=== PATIENT | male | born 1970 | race African-American/Black ===

== ENCOUNTER 2025-03-03 00:32 | Inpatient (IN) | payer OTHER ==
[~2025-03-03] VITALS: Ht 172.7 cm; Wt 83.9 kg
[2025-03-03] VITALS (26 sets, daily range): BP systolic 76–191; BP diastolic 54–119; TEMP 98.4–98.5; O2SAT 96–99
[2025-03-03 01:41] LABS: PLATELET COUNT (AUTO) 257 K/uL (152-348); RED BLOOD CELL COUNT(AUTO) 5.16 MIL/uL (4.06-5.63); RED CELL DISTRIBUTION WIDTH 14.6 % (12.1-16.2); WHITE BLOOD COUNT (AUTO) 11.5 K/uL (3.6-10.2)
[2025-03-03 01:51] LABS: ASPARTATE AMINOTRANSFERASE 7.0 U/L (15-37); CREATININE 1.3 mg/dL (0.6-1.3); SODIUM SERUM 142.0 mmol/L (136-145); TOTAL PROTEIN, SERUM 7.6 g/dL (6.4-8.2); UREA NITROGEN, BLOOD 13.0 mg/dL (7-18)
[2025-03-03 02:00] LABS: *BILIRUBIN,URIN NEGATIVE (NEGATIVE); *BLOOD, URINE TRACE (NEGATIVE); *CLARITY,URINE CLEAR (CLEAR); *COLOR,URINE YELLOW (YELLOW); *KETONES,URINE 1+ (NEGATIVE); *PROTEIN,URINE 2+ (NEGATIVE); *UROBILINOGEN,URINE 0.2 E.U./dl (NORMAL); ETHANOL < 3 MG/DL (0-10); LEUKOCYTE ESTERASE ,URINE NEGATIVE (NEGATIVE); NITRITE, URINE NEGATIVE (NEGATIVE); UGLUCOSE 3+ (NEGATIVE)
[2025-03-03 02:06] LABS: SQUAMOUS EPITHELIAL CELL,UR FEW /HPF (NONE SEEN)
[2025-03-03 02:12] LABS: *AMPHETAMINE, URINE POSITIVE (NEGATIVE); *BARBITURATE, URINE NEGATIVE (NEGATIVE); *BENZODIAZEPINE, URINE NEGATIVE (NEGATIVE); *CANNABINOID, URINE NEGATIVE (NEGATIVE); *COCCAINE, URINE NEGATIVE (NEGATIVE); *OPIATE, URINE NEGATIVE (NEGATIVE); *PHENCYCLIDINE SCREEN,URINE NEGATIVE (NEGATIVE); FENTANYL, URINE NEGATIVE (NEGATIVE)
[2025-03-03] MEDS: IV NS 1000 ML 1,000 ML IV ONE (02:16)
[2025-03-03] MEDS ORDERED: LORAZEPAM 2 MG/1 ML VIAL ONE ×2 (04:34→08:01)
[2025-03-03] MEDS: LORAZEPAM 2 MG/1 ML VIAL IV ONE ×2 (04:49→08:05)
[2025-03-03] MEDS ORDERED: METF-440 PO (07:50)
[2025-03-03] MEDS ORDERED: MULT-225 PO (11:41)
[2025-03-03] MEDS ORDERED: IBUP-1955 PO (11:41)
[2025-03-03] MEDS: AMLODIPINE 5 MG TABLET PO SCH (12:18)
[2025-03-03] MEDS: LOSARTAN POTASSIUM 50 MG TABLET PO SCH (12:19)
[2025-03-03] MEDS ORDERED: REMEDY ESSENTIAL ZINC PASTE 113 GM TP PRN (13:30)
[2025-03-03] MEDS ORDERED: ACETAMINOPHEN 325 MG TABLET PO PRN (13:30)
[2025-03-03] MEDS ORDERED: ONDANSETRON 4 MG/2 ML VIAL IV PRN (13:30)
[2025-03-03] MEDS: LORAZEPAM 2 MG/1 ML VIAL IV PRN (13:32)
[2025-03-03] MEDS: NICOTINE 21 MG/24HR PATCH TD SCH (15:20)
[2025-03-03] MEDS: HALOPERIDOL LACTATE 5 MG/1 ML VIAL IM ONE (15:25)
[2025-03-03] MEDS: NICARDIPINE IN NS 200 ML IV PRN (15:33)
[2025-03-04] VITALS (10 sets, daily range): BP systolic 75–118; BP diastolic 46–78; TEMP 97.4–98.4; O2SAT 85–99
[2025-03-04] MEDS: LORAZEPAM 2 MG/1 ML VIAL IV PRN (04:34)
[2025-03-04] MEDS: PANTOPRAZOLE SODIUM 40 MG TABLET.DR PO SCH (08:35)
[2025-03-04] MEDS: QUETIAPINE FUMARATE 25 MG TABLET PO SCH (09:54)
[2025-03-04] MEDS ORDERED: NICOTINE 21 MG/24HR PATCH TD SCH (14:00)
== END 2025-03-04 11:45 | disposition left against medical advice (07) | DRG 812 ==
LOC: ER 00:44 → TELE3 07:56 → CCU 10:41
PROVIDERS: ADMIT Nurse Practitioner Acute Care; ATTEND Nurse Practitioner Acute Care
DX: T43.651A Poisoning by methamphetamines accidental (unintentional), initial encounter (principal); G92.8 Other toxic encephalopathy; I16.0 Hypertensive urgency; Y92.89 Other specified places as the place of occurrence of the external cause; I10 Essential (primary) hypertension; Z53.29 Procedure and treatment not carried out because of patient's decision for other reasons; Z91.148 Patient's other noncompliance with medication regimen for other reason; E11.65 Type 2 diabetes mellitus with hyperglycemia; Z79.84 Long term (current) use of oral hypoglycemic drugs; Z79.899 Other long term (current) drug therapy; R00.0 Tachycardia, unspecified; F15.10 Other stimulant abuse, uncomplicated
CPT/HCPCS: 36415; 71045; 84484; 85025; A4606; A4663; G0378; G0480; J0360; J1630; J2060; J7040